=== PATIENT | male | born 1965 | race African-American/Black ===

== ENCOUNTER 2018-08-18 10:42 | Inpatient (IN) | payer MEDICAID ==
[~2018-08-18] VITALS: Ht 180.3 cm; Wt 99.8 kg
[2018-08-18] MEDS ORDERED: MORPHINE SULFATE 4 MG/ML CPJ (NOT FOR IM USE) IV STA (11:03)
[2018-08-18] MEDS ORDERED: ONDANSETRON HCL 4MG/2ML INJ IV STA (11:03)
[2018-08-18] MEDS ORDERED: NITROGLYCERIN OINT 1GM/INCH UDPKT TD ONE (11:15)
[2018-08-18] MEDS ORDERED: NITROGLYCERIN 0.4MG TABLET SL SL PRN (11:15)
[2018-08-18] MEDS ORDERED: ASPIRIN 81MG TABLET PO ONE (11:15)
[2018-08-18 11:52] LABS: BASOPHILS % 0.7 % (0.0-2.0); EOSINOPHILS % 4.9 % (0.0-5.0); HEMOGLOBIN. 13.7 g/dL (14.0-18.0); LYMPHOCYTES % 25.8 % (20.0-50.0); MEAN CORPUSCULAR HEMOGLOBIN 28.6 pg (28.0-32.0); MEAN CORPUSCULAR VOLUME 85.8 fL (80.0-94.0); MEAN PLATELET VOLUME 7.6 fl (7.4-10.4); MONOCYTES % 8.5 % (2.0-8.0); NEUTROPHILS % 60.1 % (40.0-76.0); PLATELET 269 x1000/uL (130-400); RED BLOOD CELL COUNT 4.77 mill/uL (4.7-6.1); RED CELL DISTRIBUTION WIDTH 16.5 % (11.6-14.6)
[2018-08-18 11:53] LABS: CHLORIDE 105 mEq/L (98-107)
[2018-08-18 11:55] LABS: PARTIAL THROMBOPLASTIN TIME 27.1 sec (23.4-31.0); PROTHROMBIN TIME 9.7 sec (9.1-11.1)
[2018-08-18 11:59] LABS: ETHANOL BLOOD < 10 mg/dL
[2018-08-18] MEDS ORDERED: FUROSEMIDE 20MG/2ML VIAL IVP ONE (12:15)
[2018-08-18] MEDS ORDERED: LORAZEPAM 2MG/ML CPJ IV ONE (12:15)
[2018-08-18] MEDS ORDERED: ONDANSETRON HCL 4MG/2ML INJ IV PRN (13:15)
[2018-08-18] MEDS ORDERED: DIPHENHYDRAMINE 50MG/ML VIAL IV PRN (13:15)
[2018-08-18] MEDS ORDERED: ACETAMINOPHEN 325MG TABLET PO PRN (13:15)
[2018-08-18] MEDS ORDERED: IPRATROPIUM/ALBUTEROL 0.5-3(2.5)MG/3ML NEB INH PRN (13:15)
[2018-08-18] MEDS ORDERED: LORAZEPAM 2MG/ML CPJ IV PRN (13:15)
[2018-08-18] MEDS ORDERED: MAGNESIUM/ALUMINUM HYDROXIDE/SIMETHICONE 30ML UDC PO PRN (13:15)
[2018-08-18] MEDS ORDERED: NA PHOS,M-B/NA PHOS,DI-BA ENEMA 118ML PR PRN (13:15)
[2018-08-18] MEDS ORDERED: HYDROCODONE/ACETAMINOPHEN 5/325MG TABLET PO PRN (13:15)
[2018-08-18] MEDS ORDERED: GUAIFENESIN 200MG/10ML SUGAR FREE UDC PO PRN (13:15)
[2018-08-18] MEDS ORDERED: MORPHINE SULFATE 4 MG/ML CPJ (NOT FOR IM USE) IV PRN (13:15)
[2018-08-18] MEDS ORDERED: DOCUSATE SODIUM 100MG CAPSULE PO PRN (13:15)
[2018-08-18 15:11] VITALS: BP 179/103
[2018-08-18] MEDS: CLONIDINE 0.1MG TABLET PO PRN (15:52)
[2018-08-18] MEDS ORDERED: ENOXAPARIN 40MG/0.4ML SYR SUBCUT SCH (16:00)
[2018-08-18] MEDS ORDERED: INFLUENZA VIRUS VACCINE(AFLURIA) 0.5ML SYR IM ONE (16:45)
[2018-08-18 17:22] VITALS: BP 165/105
[2018-08-18 20:00] VITALS: BP 139/91
[2018-08-18 20:08] LABS: CHLORIDE 104 mEq/L (98-107)
[2018-08-18] MEDS: GUAIFENESIN 600MG ER TABLET PO SCH (21:06)
[2018-08-18] MEDS: AMLODIPINE 2.5MG TABLET PO SCH (21:07)
[2018-08-19] MEDS: IPRATROPIUM/ALBUTEROL 0.5-3(2.5)MG/3ML NEB HHN SCH ×3 (01:51→14:51)
[2018-08-19] MEDS: BUDESONIDE 0.5MG/2ML NEB HHN SCH ×2 (01:51→08:01)
[2018-08-19 03:16] LABS: BASOPHILS % 0.6 % (0.0-2.0); HEMATOCRIT. 39.3 % (42.0-52.0); LYMPHOCYTES % 22.3 % (20.0-50.0); MEAN CORPUSCULAR HEMOGLOBIN 28.5 pg (28.0-32.0); MEAN PLATELET VOLUME 7.6 fl (7.4-10.4); MONOCYTES % 8.1 % (2.0-8.0); PLATELET 248 x1000/uL (130-400); RED BLOOD CELL COUNT 4.57 mill/uL (4.7-6.1); RED CELL DISTRIBUTION WIDTH 16.5 % (11.6-14.6)
[2018-08-19 03:20] LABS: CHLORIDE 105 mEq/L (98-107)
[2018-08-19 03:29] LABS: LDL CHOLESTEROL 88 mg/dL (5-100)
[2018-08-19 03:30] LABS: HDL CHOLESTEROL 45 mg/dL (40-59)
[2018-08-19 03:32] LABS: T4 FREE 0.96 ng/dL (0.76-1.46)
[2018-08-19 03:43] LABS: *AMPHETAMINES SCREEN URINE NEGATIVE (NEGATIVE); *BARBITURATES SCREEN URINE NEGATIVE (NEGATIVE); *BENZODIAZEPINES SCREEN URINE NEGATIVE (NEGATIVE); *COCAINE SCREEN URINE PRESUMTIVE POSITIVE (NEGATIVE); METHADONE URINE SCREEN NEGATIVE (NEGATIVE); OPIATES URINE SCREEN PRESUMTIVE POSITIVE (NEGATIVE)
[2018-08-19 03:44] LABS: CANNABINOID URINE SCREEN PRESUMTIVE POSITIVE (NEGATIVE); PHENCYCLIDINE URINE SCREEN PRESUMTIVE POSITIVE (NEGATIVE)
[2018-08-19 08:05] VITALS: BP 161/110
[2018-08-19] MEDS: AMLODIPINE 2.5MG TABLET PO SCH (08:37)
[2018-08-19] MEDS: GUAIFENESIN 600MG ER TABLET PO SCH (08:37)
[2018-08-19] MEDS ORDERED: ASPIRIN 81MG EC TABLET PO SCH (09:00)
[2018-08-19] MEDS ORDERED: NICOTINE 14MG PATCH TD SCH (09:00)
[2018-08-19] MEDS ORDERED: FUROSEMIDE 40MG/4ML VIAL IV SCH (09:00)
[2018-08-19] MEDS ORDERED: INFLUENZA VIRUS VACCINE(AFLURIA) 0.5ML SYR IM ONE (10:00)
[2018-08-19 11:39] VITALS: BP 147/105
[2018-08-19] MEDS ORDERED: PHENYTOIN SODIUM EXTENDED 100MG CAPSULE PO NR (12:15)
[2018-08-19] MEDS: CLONIDINE 0.1MG TABLET PO PRN (12:28)
[2018-08-19 14:16] VITALS: BP 152/88
== END 2018-08-19 15:10 | disposition home or self-care (01) | DRG 816 ==
LOC: ER 12:06 → EDBEDREQ 12:51 → 5WST 13:02 → EDBEDREQ 13:03 → ENRESERV 13:38
PROVIDERS: ADMIT Internal Medicine; ATTEND Internal Medicine
DX: T40.5X1A Poisoning by cocaine, accidental (unintentional), initial encounter (principal); I21.4 Non-ST elevation (NSTEMI) myocardial infarction; J96.00 Acute respiratory failure, unspecified whether with hypoxia or hypercapnia; I50.43 Acute on chronic combined systolic (congestive) and diastolic (congestive) heart failure; F14.10 Cocaine abuse, uncomplicated; I11.0 Hypertensive heart disease with heart failure; F17.210 Nicotine dependence, cigarettes, uncomplicated; G40.909 Epilepsy, unspecified, not intractable, without status epilepticus; I25.10 Atherosclerotic heart disease of native coronary artery without angina pectoris; J68.0 Bronchitis and pneumonitis due to chemicals, gases, fumes and vapors; Z71.6 Tobacco abuse counseling; Y92.89 Other specified places as the place of occurrence of the external cause; Z79.899 Other long term (current) drug therapy
CPT/HCPCS: 36415; 71045; 80048; 80053; 80061; 80185; 80305; 83880; 84439; 84443; 84484; 85025; 85610; 85730; 90686; 93005; 93306; 94640; 96374; 96375; 99285; G0482; J1650; J1940; J2060; J2270; J2405; J7620; J7626